=== PATIENT | female | born 1955 | race Caucasian/White ===

== ENCOUNTER 2019-03-29 13:51 | Inpatient (IN) | payer SELFPAY ==
--- NOTE | 2019-03-29 14:00 | CT ---
EXAM: CT brain without contrast HISTORY: Right-sided weakness and facial drooping COMPARISON: None TECHNIQUE: Multiple contiguous axial images were obtained and a CT of the brain without contrast. FINDINGS: There are scattered hypodensities in the subcortical and periventricular white matter consi stent with small vessel ischemic disease. No large confluent infarction is seen. One of the hypodensities in the right basal ganglia is a lacunar infarction of uncertain age. There is no eviden ce of hydrocephalus, intracranial hemorrhage, or extra-axial fluid collection. The calvarium and overlying soft tissues are unremarkable. The visualized paranasal sinuses and masto id air cells are well aerated. IMPRESSION: No evidence of confluent infarction Dr. Flor notified of findings at 1:57 PM on 03/29/2019.
[2019-03-29 14:05] LABS: #Lymphocytes 2.2 thou/uL (1.20-3.40); #Monocytes 0.4 thou/uL (0.11-0.59); #Neutrophils 4.2 thou/uL (1.40-6.50); %Basophils 0.5 % (0.0-1.0); %Eosinophils 0.4 % (0.0-10.0); %Lymphocytes 31.8 % (21.0-51.0); %Monocytes 5.1 % (0.0-10.0); %Neutrophils 62.2 % (42.0-75.0); Hemoglobin 14.1 g/dL (12.0-16.0); Mean Corpuscular HGB CONC 35.9 g/dL (32.0-36.0); Mean Corpuscular Hemoglobin 31.3 pg (27.0-31.0); Mean Corpuscular Volume 87.1 fL (78.0-98.0); Platelet Count 246 thou/uL (130-400); RBC Distribution Width 11.9 % (11.5-14.5); Red Blood Cell (RBC) Count 4.52 mill/uL (4.20-5.40); White Blood Cell (WBC) Count 6.8 thou/uL (4.8-10.8)
[2019-03-29 14:11] LABS: PTT 24.5 SEC (22.9-36.1)
--- NOTE | 2019-03-29 14:12 | CT ---
Exam: CTA neck with contrast CTA head with contrast HISTORY: Stroke with right-sided weakness COMPARISON: None TECHNIQUE: 1. Multiple contiguous axial images were obtained and a CTA of the neck with contrast. 3-D sagittal a nd coronal MIP reformats were performed. 2. Multiple contiguous axial images were obtained and a CTA of the head with contrast. 3-D sagittal a nd coronal MIP reformats were performed. FINDINGS: CTA NECK: Aortic arch: Normal origin of the carotid arteries from the arch. No significant atherosclerotic dise ase of the subclavian arteries. Right common carotid artery: No significant atherosclerotic disease or narrowing Left common carotid artery: No significant atherosclerotic disease or narrowing Right internal carotid artery: Mild calcified atherosclerotic plaque with less than 25% stenosis per NASCET criteria Right external carotid artery: No significant atherosclerotic disease or narrowing Left internal carotid artery: Mild calcified atherosclerotic plaque with less than 25% stenosis per NASCET criteria Left external carotid artery: No significant atherosclerotic disease or narrowing Right cervical vertebral artery: No significant atherosclerotic disease or narrowing Left cervical vertebral artery: No significant atherosclerotic disease or narrowing No cervical adenopathy. There is a 2.6 cm right thyroid hypodensity. The lung apices are unremarkable . Degenerative changes in the spine. CTA HEAD: Right intracranial internal carotid artery: Patent without narrowing or occlusion Right anterior cerebral artery: Patent without narrowing or occlusion Right middle cerebral artery: Patent without narrowing or occlusion Left intracranial internal carotid artery: Patent without narrowing or occlusion Left anterior cerebral artery: Patent without narrowing or occlusion Left middle cerebral artery: Patent without narrowing or occlusion No aneurysmal dilatation is seen in the anterior circulation. Right vertebral artery: Patent without narrowing or occlusion Left vertebral artery: Patent without narrowing or occlusion Basilar artery: Patent without narrowing or occlusion The posterior cerebral arteries and cerebellar arteries are patent without narrowing or occlusion. No aneurysmal dilatation is seen in the posterior circulation. IMPRESSION: 1. Mild bilateral internal carotid artery disease without significant stenosis. 2. No significant CTA abnormality of the head 3. Thyroid hypodensity should be evaluated with a nonemergent outpatient thyroid ultrasound.
[2019-03-29 14:21] LABS: ALT (SGPT) 12 U/L (8-55); AST (SGOT) 19 U/L (5-34); Albumin 3.8 g/dL (3.4-4.8); Alkaline Phosphatase 125 U/L (40-110); Anion Gap 17 mmol/L (10-20); BUN (Urea Nitrogen) 9 mg/dL (9.8-20.1); Bilirubin, Total 0.4 mg/dL (0.2-1.2); CK (CPK) 148 U/L (29-168); Calc. Creatinine Clearance 0 mL/min (70-130); Calcium 9.2 mg/dL (7.8-10.44); Carbon Dioxide 27 mmol/L (23-31); Chloride 95 mmol/L (98-107); Estimated GFR-MDRD 58; Globulin 2.4 g/dL (2.4-3.5); Glucose 463 mg/dL (80-115); Protein, Total 6.2 g/dL (6.0-8.3); Sodium 136 mmol/L (136-145)
[2019-03-29 14:33] LABS: Potassium 2.6 mmol/L (3.5-5.1)
[2019-03-29 14:36] LABS: CKMB 16.2 ng/mL (0-6.6)
--- NOTE | 2019-03-29 14:40 | RAD ---
EXAM: Single view of the chest HISTORY: Altered mental status with facial drooping and right arm weakness COMPARISON: None FINDINGS: Single view of the chest shows a normal sized cardiomediastinal silhouette. Atheroscleroti c calcification are seen in the aorta. There is no evidence of consolidation, mass, or pleural effusion. The bones are unremarkable. IMPRESSION: No evidence of acute cardiopulmonary disease
[2019-03-29] MEDS ORDERED: Ondansetron PF 4 MG/2 ML Vial IVP PRN (17:30)
[2019-03-29] MEDS ORDERED: Acetaminophen 650 MG Suppository PR PRN (17:30)
[2019-03-29] MEDS ORDERED: Communication Order-Pharmacy FS SCH (17:30)
[2019-03-29] MEDS ORDERED: Labetalol HCl 100 MG/20 ML VIAL SLOW IVP PRN (17:30)
[2019-03-29] MEDS ORDERED: Ondansetron ODT 4 MG TAB PO PRN (17:30)
[2019-03-29] MEDS ORDERED: hydrALAZINE 20 MG/ML VIAL SLOW IVP PRN (17:30)
[2019-03-29] MEDS ORDERED: niCARdipine 25 MG in Sodium Chloride 0.9% 250 ML 240 ML IVPB PRN (17:30)
[2019-03-29] MEDS ORDERED: Sodium Chloride 0.9% 1,000 ML IV SCH (17:30)
[2019-03-29 17:44] VITALS: BMI 28.5
[2019-03-29] MEDS ORDERED: Potassium Chloride 40 MEQ in Sodium Chloride 0.9% 250 ML 250 ML IVPB SCH (18:15)
[2019-03-29] MEDS: Sodium Chloride 0.9% 1,000 ML IV SCH (18:52)
[2019-03-29 21:40] LABS: Troponin I 6.129 ng/mL (< 0.028)
[2019-03-29] MEDS: Famotidine 20 MG TAB PO SCH (21:59)
[2019-03-29] MEDS: Atorvastatin Calcium 40 MG TAB PO SCH (21:59)
[2019-03-29] MEDS: Insulin Regular 300 UNITS/3 ML VIAL SC PRN (21:59)
[2019-03-30] MEDS: Acetaminophen 500 MG TAB PO PRN ×2 (00:09→21:13)
--- NOTE | 2019-03-30 01:01 | HP ---
PRIMARY CARE PROVIDER: Javier Fagan MD CHIEF COMPLAINT: Right facial droop with right arm and lower extremity paralysis. HISTORY OF PRESENT ILLNESS: This is a 63-year-old female, who presents to [facility] Emergency Department after family noted right-sided weakness, right facial droop, slurred speech with unclear time course of onset. The daughter reports the patient had complained of difficulty ambulating with slurred speech at which point, family notified EMS, which she was transferred to the emergency room with right-sided deficit. The patient apparently was last seen normal approximately at 11:30 a.m. on 03/29/2019. The patient and family report a history of TIA within the last week, however, was not evaluated by any medical personnel. The symptoms resolved in a few hours and the patient continued on her regular activities. The family reports history of prior CVA x3 in the past, most recently in September 2018. The patient apparently left the hospital against medical advice and did not resume any medications including aspirin and did not have any inpatient rehabilitation. The patient had slow recovery of right-sided deficits, ambulating with a walker and eventually able to ambulate short distances or with a wheelchair. The daughter reports intermittent falls as the patient has lived independently near her daughter in the [facility]. The patient has continued to drive short distances according to the family over the last year. In the emergency room, the patient underwent general evaluation with initial CT imaging of the brain showing no acute process. CT angiogram was also performed showing no focal stenosis at which point, the patient was deemed an appropriate candidate for tPA. The patient received the administration and was monitored in the emergency room without specific increase in strength of the right upper or right lower extremity. The patient's speech had improved somewhat according to family members and nursing personnel. The patient was also noted on initial evaluation with elevated troponin I as well as a BNP of 2800. The patient denied any specific chest pain or shortness of breath, but does state that she does not want to go to inpatient rehab. PAST MEDICAL HISTORY: 1. History of CVA, September 2018, with residual right-sided deficit. 2. Tobacco abuse, ongoing. 3. Noncompliance. 4. Question of diabetes mellitus type 2, untreated. 5. Right hemiparesis. 6. Chronic obstructive pulmonary disease. PAST SURGICAL HISTORY: 1. Status post cholecystectomy. 2. Status post hysterectomy. 3. Status post bladder suspension. 4. Status post hernia repair. CURRENT MEDICATIONS: Reviewed and negative. ALLERGIES: TO PENICILLIN. FAMILY HISTORY: Positive for hypertension and diabetes mellitus. SOCIAL HISTORY: The patient resides in [place], [place], near her daughter who accompanies her in the emergency room. Smoked greater than 30 years up to 2 packs per day. No illicit drug use. No alcohol. History of falls with right-sided deficit after previous CVA. REVIEW OF SYSTEMS: CONSTITUTIONAL: Negative for weight loss or gain, ability to conduct usual activities. SKIN: Negative for rash, itching. EYES: Negative for double vision, pain. ENT/MOUTH: Negative for nose bleeding, neck stiffness, pain, tenderness. CARDIOVASCULAR: Negative for palpitations, dyspnea on exertion, orthopnea. RESPIRATORY: Negative for shortness of breath, wheezing, cough, hemoptysis, fever or night sweats. GASTROINTESTINAL: Negative for poor appetite, abdominal pain, heartburn, nausea, vomiting, constipation, or diarrhea. GENITOURINARY: Negative for urgency, frequency, dysuria, nocturia. MUSCULOSKELETAL: Negative for pain, swelling. NEUROLOGIC/PSYCHIATRIC: Negative for anxiety, depression. ALLERGY/IMMUNOLOGIC: Negative for skin rash, bleeding tendency. Otherwise negative except as stated per HPI. PHYSICAL EXAMINATION: VITAL SIGNS: On admission. Blood pressure 184/121, pulse 105, respiratory rate 16, temperature 98 degrees Fahrenheit, O2 saturation 96% on room air. GENERAL APPEARANCE: This is a 63-year-old female, smiling with right facial droop, in no acute distress. HEENT: Pupils are equal, round, reactive to light and accommodation. Extraocular muscles are intact. No scleral icterus. No conjunctival injection. Nares patent. OP is clear. Teeth in poor repair. Right facial asymmetry noted. NECK: Supple. No cervical adenopathy. No thyromegaly. No carotid bruits. No JVD appreciated. Cervical spine with full active and passive range of motion. No meningeal signs noted. CHEST: Diminished breath sounds in the bases bilaterally. No crackles noted. CARDIOVASCULAR: S1, S2 with a 1/6 to 2/6 systolic ejection murmur at the left sternal border. ABDOMEN: Rounded, soft, nontender, and nondistended. Bowel sounds are positive in all 4 quadrants. There is no hepatosplenomegaly. No abdominal bruits. No rebound or guarding appreciated. EXTREMITIES: Warm and dry with fair turgor. No clubbing, cyanosis, or asymmetric edema appreciated. Pulses are palpable distally at the dorsalis pedis, posterior tibial, and popliteal arteries bilaterally. Capillary refill is less than 2 seconds. NEUROLOGIC: Right facial asymmetry noted. Dysarthria and dysphagia. Right flaccid hemiparesis. PERTINENT LABORATORY AND X-RAY FINDINGS: Sodium 136, potassium 2.6, chloride 95, CO2 of 27, BUN 9, creatinine 0.97, estimated GFR of 58, glucose 463, calcium 9.2, alkaline phosphatase 125, total CK of 148, troponin I 1.557. BNP 2840. CBC showed a white blood cell count of 6.8, hemoglobin 14, hematocrit 39, platelet count 246 with normal differential. PT 13.0, INR 1.0, PTT 24.5. CT of the brain without contrast dated 03/29/2019, showed no acute intracranial process. Lacunar infarcts noted of indeterminate age in the right basal ganglia. CT angiogram of the [place] dated 03/29/2019, showed no focal stenosis. Mild bilateral internal carotid artery disease without focal stenosis. Portable chest x-ray dated 03/29/2019, showed no acute cardiopulmonary process. EKG dated 03/29/2019, by my interpretation shows a sinus tachycardia with rates in the low 100s. Attenuated R-waves noted in the precordial leads. Left axis deviation noted. T-wave inversion noted in leads V2 and V3. ASSESSMENT AND PLAN: 1. Acute cerebrovascular accident with right hemiparesis. The patient will be admitted to the critical care unit status post tPA in the emergency room. We will continue general stroke protocol. Consult neurology service in the a.m. for any further recommendations. Check 2D transthoracic echocardiogram. Hold antithrombotics and aspirin therapy x24 hours per post tPA protocol. PT, OT, and speech therapy evaluation pending. 2. Non-ST elevation myocardial infarction. Suspected given elevated troponin I initially. Continue troponin I trending. Resume aspirin when clinically stable post tPA therapy. Consult cardiology service in the a.m. Initiate Lipitor 40 mg at bedtime. 2D transthoracic echocardiogram pending. 3. Hypokalemia. Potassium chloride supplementation and serial potassium monitoring. 4. Hypertensive urgency. Suspect secondarily to #1. Continue hydralazine per stroke protocol. Serial blood pressure monitoring. Titrate blood pressure regimen prior to discharge. 5. Tobacco abuse. Smoking cessation resources prior to discharge. 6. Prophylaxis. SCDs while in bed. Pepcid 20 mg p.o. b.i.d. PT, OT, and speech therapy evaluation pending. 7. Code status is full. Surrogate medical decision maker is the patient's daughter. Job ID: [id number]
[2019-03-30] MEDS: Insulin Regular 300 UNITS/3 ML VIAL SC PRN ×2 (01:30→16:35)
[2019-03-30] MEDS ORDERED: Lorazepam 2 MG/ML VIAL SLOW IVP SCH (03:00)
[2019-03-30 06:44] LABS: Hemoglobin A1c 9.9 % (4.0-6.0)
[2019-03-30 06:54] LABS: Potassium 2.4 mmol/L (3.5-5.1)
[2019-03-30 06:55] LABS: Cardiac Risk 6.7 (Less than 4.5)
[2019-03-30] MEDS: Famotidine 20 MG TAB PO SCH ×2 (08:33→21:13)
[2019-03-30] MEDS ORDERED: Potassium Chloride 40 MEQ in Sodium Chloride 0.9% 250 ML 250 ML IVPB SCH (09:00)
--- NOTE | 2019-03-30 09:09 | CON ---
DATE OF CONSULTATION: 03/30/2019 REASON FOR CONSULTATION: Elevated troponin. HISTORY OF PRESENT ILLNESS: Ms. Lucio is a 63-year-old woman with a previous history of tobacco abuse. No recent history of underlying coronary artery disease, who recently presented with right-sided facial droop and flaccid right upper and lower extremity. She was seen and evaluated in the emergency room and was given tPA. During my visit, she answers questions slowly. She does have some movement noted to the right upper extremity. Again, she is able to answer some questions, but others not able to. She denies chest pain, pressure, shortness of breath. She does state she has chronic shortness of breath from COPD. PAST MEDICAL HISTORY: CVA, noncompliance, right hemiparesis, diabetes mellitus, COPD, cholecystectomy, hysterectomy, bladder suspension, and hernia repair. ALLERGIES: PENICILLIN. SOCIAL HISTORY: Sixty pack year history, continued use. No alcohol use. REVIEW OF SYSTEMS: A 10-point review of systems is reviewed and difficult to assess given the above. PHYSICAL EXAMINATION: GENERAL: Right-sided facial droop and right upper and lower extremity weakness. VITAL SIGNS: Blood pressure 176/94, pulse 101, respirations 20. NEUROLOGIC: The patient is alert and oriented x3 with no focal neurologic deficits. HEENT: Sclerae without icterus. Mouth has moist mucous membranes with normal pallor. NECK: No JVD. Carotid upstroke brisk. No bruits bilaterally. LUNGS: Clear to auscultation with unlabored respirations. BACK: No scoliosis or kyphosis. CARDIAC: Regular rate and rhythm with normal S1 and S2. No S3 or S4 noted. No significant rubs, murmurs, thrills, or gallops noted throughout the precordium. PMI is not displaced. There is no parasternal heave. ABDOMEN: Soft, nontender, nondistended. No peritoneal signs present. No hepatosplenomegaly. No abnormal striae. EXTREMITIES: 2+ femoral and 2+ dorsalis pedis pulses. No cyanosis, clubbing, or edema. SKIN: No gross abnormalities. PERTINENT LABORATORY DATA: Hemoglobin 14.1, potassium 2.4. EKG shows normal sinus rhythm with right bundle-branch block. No previous EKG tracings for comparison. She does appear to have ST-segment elevation noted in V2, V3, and unknown whether chronic or acute. This was at the March 29, at 14:07. Peak troponin 6.1. CK-MB not drawn. IMPRESSION: 1. Elevated troponin. 2. Abnormal EKG. 3. Recent cerebrovascular accident, status post tPA. 4. Ongoing tobacco abuse. 5. Chronic obstructive pulmonary disease. RECOMMENDATIONS: Ms. Lucio currently has no symptoms. She has greater than 14 hours from her initial EKG. Her troponin appears to be leveling off going from 1 to 5 to 6. We would recommend repeat troponin in addition to CK-MB. At this point, given that she has no symptoms and has received tPA, we will continue current course. She will likely need aspirin and Plavix. I would also recommend beta-andrew therapy, low-dose. She will need to have an increased blood pressure and not drop her blood pressures significantly. She is currently on IV nicardipine. We will review her echo. I did spend 35 minutes of critical care time with Ms. Lucio. Job ID: [id number]
--- NOTE | 2019-03-30 09:39 | CT ---
PRELIMINARY REPORT/[facility]/EMERGENCY AFTER HOURS PROCEDURE: PROCEDURE INFORMATION: Exam: CT Head Without Contrast Exam date and time: 03/30/2019 4:58 AM Clinical history: 63 years old, female; Condition or disease and screening exam; Patient HX: F/u CVA; S/P t-pa TECHNIQUE: Imaging protocol: Computed tomography of the head without contrast. COMPARISON: CT Brain WO Con 03/29/2019 1:52 PM FINDINGS: Brain: There are unchanged multiple small hypodensities in the basal ganglia and left arriola radiata, consistent with remote lacunar infarctions. No hemorrhage. Unremarkable Patchy whitte matter hypodensities are nonspecific but may be seen in small vessel chronic ischemic changes. Ventricles: No ventriculomegaly. Bones/joints: No acute fracture. Sinuses: Visualized sinuses are unremarkable. No fluid levels. Mastoid air cells: Visualized mastoid air cells are well aerated. Soft tissues: Unremarkable. IMPRESSION: No significant change. Thank you for allowing us to participate in the care of your patient. Dictated and Authenticated by: Marsha Walker MD 03/30/2019 5:43 AM Central Time ([place] & [place]) FINAL REPORT CT BRAIN WITHOUT CONTRAST: I agree with the preliminary report given by Ofelia. POS: [facility]
[2019-03-30 09:46] LABS: CKMB 15.9 ng/mL (0-6.6); Critical Call CKMB RESULT DECREASING; Critical Call Chem Troponin I RESULT DECREASING; Troponin I 3.567 ng/mL (< 0.028)
--- NOTE | 2019-03-30 11:40 | MRI ---
MRI Brain WO Con: 03/30/2019 5:30 PM CLINICAL HISTORY: Stroke. COMPARISON: Reference made to 03/30/[address] FINDINGS: Extra axial spaces: Mild prominence due to parenchymal atrophy. Acute infarction: Foci of restricted diffusion are present bilaterally, on the left within the rariola radiata extending into the left lentiform nucleus, and on the right involving the periventricular white matter of the right temporoparietal region. Ventricular system: Mild compensatory dilatation. Basal cisterns: Normal. Cerebral parenchyma: Microvascular ischemic changes. Midline shift: None. Cerebellum: Normal. Brainstem: Normal. Paranasal sinuses:Clear IMPRESSION:Multifocal small recent infarctions of bilateral cerebral hemispheres. This may relate to embolic phenomenon.
[2019-03-30] MEDS: Lorazepam 2 MG/ML VIAL SLOW IVP PRN (11:56)
--- NOTE | 2019-03-30 13:06 | CON ---
DATE OF CONSULTATION: 03/30/2019 TELEMEDICINE CONSULT CHIEF COMPLAINT: Right-sided weakness. HISTORY OF PRESENT ILLNESS: History was obtained both from the patient and her daughter. The patient has been having some symptoms since a week. She has been having difficulty climbing stairs, but yesterday she was dragging her foot while walking. An hour before diagnosis, she had right facial droop and she looked hot even though she was not hot and she was short of breath as well and she had right leg numbness and tingling and once she developed right-sided weakness including facial droop, she was brought here and she received IV tPA since she was within the time frame for tPA. PREVIOUS MEDICAL HISTORY: The patient has had two other strokes, one in 2018 and another in 2015 which affected her left side and has recovered fully. The stroke from 2018 did not result in improvement. The patient had residual right-sided weakness. ALLERGIES: SHE IS ALLERGIC TO PENICILLIN, WHICH CAUSES A RASH. PAST SURGICAL HISTORY: She had gallbladder surgery in , hysterectomy in , bladder repair and hernia repair in 1995. FAMILY HISTORY: The patient's maternal grandmother had massive stroke. Maternal grandfather had a heart attack. Paternal grandmother from old age. Paternal grandfather had cancer. The patient's father from coronary artery disease, liver cirrhosis and congestive heart failure. He was an alcoholic and the patient's mother from coronary artery disease and diabetes. Her sister is 51 and another sister is 63. Daughter and son are born in the 1980s and they are all healthy. REVIEW OF SYSTEMS: PULMONARY: Positive for shortness of breath. CARDIAC: Negative for chest pain and palpitations. GI: Negative for any nausea, vomiting, or diarrhea. NEUROLOGICAL: Positive for right face, arm, and leg weakness. HEMATOLOGIC: Negative for any bleeding diatheses. OPHTHALMOLOGIC: Negative for vision problems. LABORATORY DATA: White count 6.8, hemoglobin 14.1, hematocrit 39.4, platelet 246. Chemistry; sodium was 136, potassium 2.6, chloride 95, bicarb 27, BUN 9, creatinine 0.97, glucose 463, elevated cardiac enzymes. Alkaline phosphatase elevated at 125. BNP 2839 and lipid profile is still within normal limits except for cholesterol of 200. CT angiogram shows mild bilateral internal carotid artery disease and no stenosis and no CT abnormalities of the head. MRI of the brain was completed and showed multifocal small lucent infarcts of the bilateral cerebral hemorrhage and is most likely embolic in nature. Echocardiogram is pending at this time. PHYSICAL EXAMINATION: VITAL SIGNS: Blood pressure 166/111 and her pulse rate is 96 and her temperature is 98 degrees Fahrenheit. CHEST: She had coarse respiratory wheezes in the lung. CARDIOVASCULAR: S1 and S2 heard. No murmurs. ABDOMEN: Soft and nontender. No organomegaly noted. NEUROLOGICAL: Higher intellectual functions normal orientation to time, place, and person. Somewhat withdrawn, did not want to cooperate much due to tiredness. Cranial nerves, normal extraocular movements and normal sensation of face bilaterally. Motor exam of the face, she had facial droop on the right side. Normal hearing bilaterally. Tongue midline. No atrophy noted. Normal elevation of palate. Motor examination, bulk normal, tone normal, strength 5/5 in upper and lower extremities in iliopsoas, hamstrings, quadriceps, ankle dorsiflexion, plantar flexion, deltoid, biceps, triceps, wrist extension and flexion, finger extension and flexion on the left side, 3/5 on the right side. Cerebellar normal [id number], [id number], sensory was normal bilaterally. IMPRESSION: The patient is a 63-year-old lady. She came in with a cerebrovascular accident, status post tPA. It is difficult to assess the full recovery because she is somewhat uncooperative likely secondary to tiredness. At this time, her examination shows right-sided face, arm, leg weakness and keeping with the acute stroke likely in the left cerebral hemisphere, but she also has embolic events bilaterally and we need to explore this further since the CT angiogram is negative, this is likely cardioembolic. RECOMMENDATIONS: Please complete echocardiogram and consult Cardiology if needed. Due to her recurrent stroke, she may need a KARLOS in order to explore this fully in case her transthoracic echo is normal. She is currently on aspirin and statin. We may have to add Plavix or other agents based on her cardiac status. I will follow up with you tomorrow. Job ID: [id number]
[2019-03-30] MEDS: Sodium Chloride 0.9% 1,000 ML IV SCH (14:04)
--- NOTE | 2019-03-30 14:38 | PDOC.HOSPP ---
- Subjective Encounter Date: 03/30/19 Encounter Time: 11:45 Subjective: pt seen and examined, her daughter bedside, - Objective Vital Signs & Weight: Vital Signs (12 hours) Temp Pulse BP Pulse Ox 03/30/19 09:31 105 H 176/121 H 03/30/19 07:25 100 03/30/19 07:00 98 F 03/30/19 04:00 97.9 F Weight Weight 160 lb 14.999 oz Most Recent Monitor Data Heart Rate from ECG 109 NIBP 161/112 NIBP BP-Mean 128 Respiration from ECG 25 SpO2 91 I&O: 03/29/19 03/30/19 03/31/19 06:59 06:59 06:59 Intake Total 526 0 Output Total 650 5 Balance -124 -5 Result Diagrams: 03/29/19 13:53 03/30/19 05:58 Additional Labs: Accuchecks 03/30/19 03/30/19 03/30/19 08:34 05:20 01:32 POC Glucose 188 H 161 H 227 H 03/29/19 21:56 POC Glucose 261 H Radiology Reviewed by me: Yes EKG Reviewed by me: Yes Hospitalist ROS - Review of Systems Constitutional: denies: fever, chills, sweats, weakness, malaise, other Eyes: denies: pain, vision change, conjunctivae inflammation, eyelid inflammation, redness, other ENT: denies: ear pain, ear discharge, nose pain, nose discharge, nose congestion , mouth pain, mouth swelling, throat pain, throat swelling, other Respiratory: denies: cough, dry, shortness of breath, hemoptysis, SOB with excertion, pleuritic pain, sputum, wheezing, other Cardiovascular: denies: chest pain, palpitations, orthopnea, paroxysmal noc. dyspnea, edema, light headedness, other Gastrointestinal: denies: nausea, vomiting, abdominal pain, diarrhea, constipation, melena, hematochezia, other Genitourinary: denies: dysuria, frequency, incontinence, hematuria, retention, other Musculoskeletal: denies: neck pain, shoulder pain, arm pain, back pain, hand pain, leg pain, foot pain, other Neurological: reports: weakness, incoordination. denies: numbness, change in speech, confusion, seizures, other - Medication Medications: Active Medications Generic Name Dose Route Start Last Admin Trade Name Freq PRN Reason Stop Dose Admin Acetaminophen 1,000 mg 03/29/19 17:30 03/30/19 00:09 Tylenol PO 1,000 mg Q6H PRN Administration Mild Pain (1-3) Atorvastatin Calcium 40 mg 03/29/19 21:00 03/29/19 21:59 Lipitor PO 40 mg HS KASIA Administration Famotidine 20 mg 03/29/19 21:00 03/30/19 08:33 Pepcid PO 20 mg BID KASIA Administration Hydralazine HCl 10 mg 03/29/19 17:30 03/30/19 09:31 Apresoline SLOW IVP 10 mg Q4H PRN Administration SBP > 180 or DBP > 105 Sodium Chloride 1,000 mls @ 50 mls/hr 03/29/19 17:36 03/30/19 14:04 Normal Saline 0.9% IV 1,000 mls .Q20H KASIA Administration Insulin Human Regular 0 units 03/29/19 17:30 03/30/19 01:30 Humulin R SC 4 unit .MODERATE SLIDING SC PRN Administration Moderate Correctional Scale Labetalol HCl 10 mg 03/29/19 17:30 03/30/19 02:05 Normodyne SLOW IVP 10 mg Q10MIN PRN Administration SBP > 180 or DBP > 105 Lorazepam 1 mg 03/30/19 11:50 03/30/19 11:56 Ativan SLOW IVP 1 mg Q4H PRN Administration Anxiety Miscellaneous Information 1 each 03/29/19 17:30 03/29/19 22:09 Communication Order-Pharmacy FS 03/30/19 17:31 Not Given NOW KASIA Sodium Chloride 10 ml 03/30/19 09:00 03/30/19 08:34 Flush - Normal Saline IVF 10 ml Q12HR KASIA Administration - Exam General Appearance: NAD, awake alert Eye: PERRL, anicteric sclera ENT: normocephalic atraumatic, no oropharyngeal lesions Neck: supple, symmetric, no JVD, no thyromegaly Heart: RRR, no murmur, no gallops, no rubs Respiratory: CTAB, no wheezes, no rales, no ronchi Gastrointestinal: soft, non-tender, non-distended, normal bowel sounds Extremities: no cyanosis, no clubbing, no edema Skin: normal turgor, no lesions Neurological - other findings: pt did not allow to do neuro exam Musculoskeletal: normal tone, normal strength Psychiatric: normal affect, normal behavior, A&O x 3 Hosp A/P (1) Hypertensive urgency Code(s): I16.0 - HYPERTENSIVE URGENCY Status: Acute (2) CVA (cerebral vascular accident) Code(s): I63.9 - CEREBRAL INFARCTION, UNSPECIFIED Status: Acute Qualifiers: CVA mechanism: embolism Laterality of affected vessel: bilateral (3) NSTEMI (non-ST elevated myocardial infarction) Code(s): I21.4 - NON-ST ELEVATION (NSTEMI) MYOCARDIAL INFARCTION Status: Chronic (4) Hypokalemia Code(s): E87.6 - HYPOKALEMIA Status: Acute (5) Tobacco abuse Code(s): Z72.0 - TOBACCO USE Status: Chronic (6) COPD (chronic obstructive pulmonary disease) Status: Chronic (7) Noncompliance with medication regimen Code(s): Z91.14 - PATIENT'S OTHER NONCOMPLIANCE WITH MEDICATION REGIMEN Status : Chronic (8) Diabetes type 2, uncontrolled Code(s): E11.65 - TYPE 2 DIABETES MELLITUS WITH HYPERGLYCEMIA Status: Acute - Plan old records reviewed/req, plan discussed w/ family, PT/OT, licensed master social worker, speech therapy 03/30/19 refused cardiac cath counselled to get MRI done does not want any dietary restriction and agreed with aspiration risk will transfer to stroke floor later today counselled to quit smoking DNR made, see advance care planning note follow echo neurology and cardiology on case medication reviewed as above symptomatic treatment
--- NOTE | 2019-03-30 14:57 | PDOC.FMACP ---
Advance Care Planning - Problem (1) Hypertensive urgency Status: Acute Code(s): I16.0 - HYPERTENSIVE URGENCY (2) CVA (cerebral vascular accident) Status: Acute Code(s): I63.9 - CEREBRAL INFARCTION, UNSPECIFIED Qualifiers: CVA mechanism: embolism Laterality of affected vessel: bilateral (3) NSTEMI (non-ST elevated myocardial infarction) Status: Chronic Code(s): I21.4 - NON-ST ELEVATION (NSTEMI) MYOCARDIAL INFARCTION (4) Hypokalemia Status: Acute Code(s): E87.6 - HYPOKALEMIA (5) Tobacco abuse Status: Chronic Code(s): Z72.0 - TOBACCO USE (6) COPD (chronic obstructive pulmonary disease) Status: Chronic (7) Noncompliance with medication regimen Status: Chronic Code(s): Z91.14 - PATIENT'S OTHER NONCOMPLIANCE WITH MEDICATION REGIMEN (8) Diabetes type 2, uncontrolled Status: Acute Code(s): E11.65 - TYPE 2 DIABETES MELLITUS WITH HYPERGLYCEMIA - Note Participants: patient, family Summary: Advanced Care Planning was discussed. The diagnosis, prognosis and goals of care were discussed. Appropriate forms and documentation to accomplish the goals of care were discussed. All questions were answered. The Palliative Care Team will be engaged to assist with completion of any outstanding forms that are needed. 63 year old female admitted with acute CVA, she was given TPA, today I had discussion with her about code status I had long discussion with her about meaning of DNR and full code status, Based on talk with her, pt was capable of making her own decision. Her daughter Kaela was present during discussion pt wanted to keep herself DNR, she does not want CPR or intubation even does not want to try in case of cardiopulmonary arrest. Initially pt was not interested in getting medical care, but after discussion agreed with conservative medical care Time Spent (mins): 20
[2019-03-30] MEDS: Atorvastatin Calcium 40 MG TAB PO SCH (21:13)
[2019-03-31] MEDS: Lorazepam 2 MG/ML VIAL SLOW IVP PRN (00:50)
[2019-03-31] MEDS: Sodium Chloride 0.9% 1,000 ML IV SCH (01:31)
[2019-03-31 07:45] VITALS: BP 140/75; TEMP 98.8
[2019-03-31] MEDS ORDERED: Aspirin 325 MG TAB PO SCH (09:00)
[2019-03-31] MEDS ORDERED: Aspirin 300 MG Suppository PR SCH (09:00)
--- NOTE | 2019-03-31 09:32 | PRG ---
DATE OF SERVICE: 03/31/2019 SUBJECTIVE: Ms. Lucio is more alert today. She continues to have right-sided weakness and right facial droop. She has had four strokes previously. She states she has worsening residual weakness and facial drooping from her last stroke. No chest pain or pressure noted. Her most recent echo did suggest LVEF of 25%. OBJECTIVE: VITAL SIGNS: Blood pressure 140/75, pulse 101, and temperature 98.8. LUNGS: Clear to auscultation. HEART: Regular rate and rhythm. ABDOMEN: Soft, nontender, nondistended. EXTREMITIES: No edema. NEURO: Right-sided facial droop and right-sided weakness. PERTINENT LABORATORY DATA: Hemoglobin 14.1 and hematocrit 39.4. IMPRESSION: 1. Recent stroke. 2. Continued tobacco abuse. 3. Noncompliance. 4. New onset cardiomyopathy. RECOMMENDATIONS: I discussed several issues with Ms. Lucio. Her LVEF has appeared to be markedly diminished showing a previous myocardial infarction with akinesis to the mid to distal anterior wall apex and distal inferior wall. If she has had four strokes in the past, one of the etiologies would be a thrombus to the apex. This was not visualized, but certainly part of the differential. She would likely benefit from anticoagulation therapy. I discussed the risks and benefits of anticoagulation therapy. She states she is not interested and understands the risk of repeat stroke. I also discussed the LifeVest with the patient. I did state that there is risk of sudden cardiac given her LVEF. She again is not interested and wound like to go home. She states she has called her daughter, who is here to pick her up today. We will therefore continue aspirin and atorvastatin. We will add low-dose beta-andrew therapy, but I am unsure whether she will truly take it. We will add metoprolol succinate to her regime. Otherwise, I have no further recommendations. Job ID: [id number]
--- NOTE | 2019-03-31 10:06 | PDOC.HOSPP ---
- Subjective Encounter Date: 03/31/19 Encounter Time: 07:30 Subjective: pt refusing her care, she wants to go home but she is not stable for discharge, she is going outside to smoke, she refused blood draw - Objective Vital Signs & Weight: Vital Signs (12 hours) Temp Pulse Resp BP Pulse Ox 03/31/19 07:44 98.8 F 101 H 16 140/75 98 03/31/19 05:59 99.4 F 102 H 18 136/75 98 03/31/19 03:35 98.3 F 113 H 20 159/92 H 92 L Weight Weight 160 lb 14.999 oz Most Recent Monitor Data Heart Rate from ECG 88 NIBP 131/83 NIBP BP-Mean 99 Respiration from ECG 26 SpO2 93 I&O: 03/30/19 03/31/19 04/01/19 06:59 06:59 06:59 Intake Total 526 150 Output Total 650 409 Balance -124 -259 Result Diagrams: 03/29/19 13:53 03/30/19 05:58 Additional Labs: Accuchecks 03/30/19 16:36 POC Glucose 257 H Radiology Reviewed by me: Yes EKG Reviewed by me: Yes Hospitalist ROS - Review of Systems ENT: denies: ear pain, ear discharge, nose pain, nose discharge, nose congestion , mouth pain, mouth swelling, throat pain, throat swelling, other Respiratory: denies: cough, dry, shortness of breath, hemoptysis, SOB with excertion, pleuritic pain, sputum, wheezing, other Cardiovascular: denies: chest pain, palpitations, orthopnea, paroxysmal noc. dyspnea, edema, light headedness, other Gastrointestinal: denies: nausea, vomiting, abdominal pain, diarrhea, constipation, melena, hematochezia, other Genitourinary: denies: dysuria, frequency, incontinence, hematuria, retention, other Musculoskeletal: denies: neck pain, shoulder pain, arm pain, back pain, hand pain, leg pain, foot pain, other Neurological: reports: weakness, change in speech - Medication Medications: Active Medications Generic Name Dose Route Start Last Admin Trade Name Freq PRN Reason Stop Dose Admin Acetaminophen 1,000 mg 03/29/19 17:30 03/30/19 21:13 Tylenol PO 1,000 mg Q6H PRN Administration Mild Pain (1-3) Atorvastatin Calcium 40 mg 03/29/19 21:00 03/30/19 21:13 Lipitor PO 40 mg HS KASIA Administration Famotidine 20 mg 03/29/19 21:00 03/30/19 21:13 Pepcid PO 20 mg BID KASIA Administration Hydralazine HCl 10 mg 03/29/19 17:30 03/30/19 09:31 Apresoline SLOW IVP 10 mg Q4H PRN Administration SBP > 180 or DBP > 105 Insulin Human Regular 0 units 03/29/19 17:30 03/30/19 16:35 Humulin R SC 6 unit .MODERATE SLIDING SC PRN Administration Moderate Correctional Scale Labetalol HCl 10 mg 03/29/19 17:30 03/30/19 02:05 Normodyne SLOW IVP 10 mg Q10MIN PRN Administration SBP > 180 or DBP > 105 Lorazepam 1 mg 03/30/19 11:50 03/31/19 00:50 Ativan SLOW IVP 1 mg Q4H PRN Administration Anxiety Sodium Chloride 10 ml 03/30/19 09:00 03/30/19 21:14 Flush - Normal Saline IVF 10 ml Q12HR KASIA Administration - Exam General Appearance: NAD, awake alert Eye: PERRL, anicteric sclera ENT: normocephalic atraumatic, no oropharyngeal lesions Neck: supple, symmetric, no JVD, no thyromegaly, no lymphadenopathy Heart: RRR, no murmur, no gallops, no rubs Respiratory: CTAB, no wheezes, no rales, no ronchi Gastrointestinal: soft, non-tender, non-distended, normal bowel sounds Extremities: no cyanosis, no clubbing, no edema Skin: normal turgor, no lesions, no rashes Neurological: facial droop Neurological - other findings: right side weakness Musculoskeletal: normal tone, normal strength Psychiatric: normal affect, normal behavior, A&O x 3 Hosp A/P (1) Hypertensive urgency Code(s): I16.0 - HYPERTENSIVE URGENCY Status: Acute (2) CVA (cerebral vascular accident) Code(s): I63.9 - CEREBRAL INFARCTION, UNSPECIFIED Status: Acute Qualifiers: CVA mechanism: embolism Laterality of affected vessel: bilateral (3) NSTEMI (non-ST elevated myocardial infarction) Code(s): I21.4 - NON-ST ELEVATION (NSTEMI) MYOCARDIAL INFARCTION Status: Chronic (4) Hypokalemia Code(s): E87.6 - HYPOKALEMIA Status: Acute (5) Tobacco abuse Code(s): Z72.0 - TOBACCO USE Status: Chronic (6) COPD (chronic obstructive pulmonary disease) Status: Chronic (7) Noncompliance with medication regimen Code(s): Z91.14 - PATIENT'S OTHER NONCOMPLIANCE WITH MEDICATION REGIMEN Status : Chronic (8) Diabetes type 2, uncontrolled Code(s): E11.65 - TYPE 2 DIABETES MELLITUS WITH HYPERGLYCEMIA Status: Acute (9) Cardiomyopathy Code(s): I42.9 - CARDIOMYOPATHY, UNSPECIFIED Status: Acute Qualifiers: Cardiomyopathy type: unspecified Qualified Code(s): I42.9 - Cardiomyopathy , unspecified - Plan old records reviewed/req, plan discussed w/ family, PT/OT, social security assessor, speech therapy, DVT proph w/lovenox 03/30/19 refused cardiac cath counselled to get MRI done does not want any dietary restriction and agreed with aspiration risk will transfer to stroke floor later today counselled to quit smoking DNR made, see advance care planning note follow echo neurology and cardiology on case medication reviewed as above symptomatic treatment 03/31/19 medically not stable for discharge she wants to leave AMA risk of discussed and she does not care she refusing medical care discussed with family counselled to stay and counselled to quit smoking but she does not want to follow that request
[2019-03-31] MEDS: Famotidine 20 MG TAB PO SCH (10:41)
--- NOTE | 2019-03-31 11:35 | DIS ---
DATE OF ADMISSION: 03/29/2019 DATE OF DISCHARGE: 03/31/2019 PRIMARY CARE PHYSICIAN: Javier Fagan MD DISCHARGE DISPOSITION: Against medical advice. PRIMARY DISCHARGE DIAGNOSES: 1. Acute CVA, multifocal, suspected for embolic phenomena. 2. Yih-XJ-hgwxrwbuj myocardial infarction type 2. 3. New-onset cardiomyopathy with ejection fraction 20% to 25%. 4. Hypertensive urgency. 5. Uncontrolled diabetes, type 2. 6. Hypokalemia. SECONDARY DISCHARGE DIAGNOSES: Ongoing tobacco abuse disorder, chronic obstructive pulmonary disease, noncompliance with treatment, hypertension, and diabetes type 2. PRIMARY PROCEDURE AND OPERATIONS: None. RADIOLOGIST INVESTIGATION: CT of brain initially did not show any acute process. CT [place] was unremarkable. Chest x-ray was normal. Repeat CT brain was not complicated. MRI of brain showed multifocal infarct. Echocardiography showed EF 20% to 25%. SIGNIFICANT LABORATORY DATA: WBC 6.8, hemoglobin 14.1, and platelets 246. INR 1.0. Potassium 2.4. Hemoglobin A1c 9.9. Troponin 3.56. LDL 143. DISCHARGE MEDICATIONS: The patient left against medical advice. HOSPITAL COURSE: A 63-year-old female with above-mentioned medical problem, who was admitted by Dr. Pires, please see his H and P for further details. The patient was admitted for right-sided facial droop and right-sided upper and lower extremity weakness. The patient was having more weakness in the right upper extremity. The patient also has previous history of stroke. The patient has significant noncompliance with treatment and she has ongoing tobacco abuse disorder. In the emergency room, the patient was given tPA because she was meeting criteria. After tPA, the patient was admitted in ICU. The patient stayed in ICU for 24 hours. We did MRI of brain which confirmed multifocal infarct. We were suspecting embolic phenomena. She has new diagnosis of systolic heart failure. Echocardiography confirmed a low EF and the patient also found with [id number] AK. During this admission, Cardiology was consulted, Neurology was consulted, Cardiology was recommending cardiac catheterization, but the patient refused. Cardiology was recommending LifeVest, but the patient refused. During this admission, we replaced potassium, but repeat blood testing patient refused. We also provided smoking cessation counseling. During this admission, we also did advance directive and the patient wanted to be a DNR. The patient does not want any kind of medical treatment. She was able to make her own decision. In presence of the patient's daughter, I have explained her to stay in hospital, but the patient does not want to stay. We also told her that she is at high risk for and even after that, she did not want to stay in the hospital. The patient left against medical advice. TIME SPENT: Total time spent on discharge day, 31 minutes Job ID: [id number]
--- NOTE | 2019-04-01 15:21 | CT ---
Exam: CTA neck with contrast CTA head with contrast HISTORY: Stroke COMPARISON: None TECHNIQUE: 1. Multiple contiguous axial images were obtained and a CTA of the neck with contrast. 3-D sagittal a nd coronal MIP reformats were performed. 2. Multiple contiguous axial images were obtained and a CTA of the head with contrast. 3-D sagittal a nd coronal MIP reformats were performed. 3. A CT perfusion was attempted. This was nondiagnostic as the patient's IV infiltrated during the ex amination. FINDINGS: CTA NECK: Aortic arch: Normal origin of the carotid arteries from the arch. No significant atherosclerotic dise ase of the subclavian arteries. Right common carotid artery: No significant atherosclerotic disease or narrowing. There is a tiny bit of atherosclerotic disease surrounding the carotid bifurcation. Left common carotid artery: No significant atherosclerotic disease or narrowing. There is a tiny bit of atherosclerotic disease surrounding the carotid bifurcation. Right internal carotid artery: No significant atherosclerotic disease or narrowing per NASCET criteri a Right external carotid artery: No significant atherosclerotic disease or narrowing Left internal carotid artery: No significant atherosclerotic disease or narrowing per NASCET criteri a Left external carotid artery: No significant atherosclerotic disease or narrowing Right cervical vertebral artery: No significant atherosclerotic disease or narrowing Left cervical vertebral artery: No significant atherosclerotic disease or narrowing No cervical adenopathy. The lung apices are unremarkable. The osseous structures are unremarkable. CTA HEAD: Right intracranial internal carotid artery: Patent without narrowing or occlusion Right anterior cerebral artery: Patent without narrowing or occlusion Right middle cerebral artery: Patent without narrowing or occlusion Left intracranial internal carotid artery: Patent without narrowing or occlusion Left anterior cerebral artery: Patent without narrowing or occlusion Left middle cerebral artery: Patent without narrowing or occlusion No aneurysmal dilatation is seen in the anterior circulation. Right vertebral artery: Patent without narrowing or occlusion Left vertebral artery: Patent without narrowing or occlusion Basilar artery: Patent without narrowing or occlusion There is occlusion of the proximal right posterior cerebral artery at the P1/P2 segment. The left pos terior cerebral artery is patent. The cerebellar arteries are patent bilaterally. No aneurysmal dilatation is seen in the posterior circulation. IMPRESSION: 1. No significant CTA abnormality of the neck 2. Right ELEVATOR INSTALLER infarction. Transcribed Date/Time: 04/01/2019 3:21 PM
== END 2019-03-31 10:25 | disposition left against medical advice (07) | DRG 61 ==
LOC: ERS 13:51 → CCU 17:40 → 2SE 03-31 00:11
PROVIDERS: ADMIT Family Medicine; ATTEND Family Medicine
DX: I63.40 Cerebral infarction due to embolism of unspecified cerebral artery (principal); I21.A1 Myocardial infarction type 2; I42.8 Other cardiomyopathies; G81.91 Hemiplegia, unspecified affecting right dominant side; I50.30 Unspecified diastolic (congestive) heart failure; Z66 Do not resuscitate; I16.0 Hypertensive urgency; E87.6 Hypokalemia; F17.210 Nicotine dependence, cigarettes, uncomplicated; I11.0 Hypertensive heart disease with heart failure; J43.9 Emphysema, unspecified; Z91.14 Patient's other noncompliance with medication regimen; Z90.710 Acquired absence of both cervix and uterus; Z90.49 Acquired absence of other specified parts of digestive tract; Z88.0 Allergy status to penicillin; Z88.8 Allergy status to other drugs, medicaments and biological substances; R29.716 NIHSS score 16; R40.2142 Coma scale, eyes open, spontaneous, at arrival to emergency department; R40.2252 Coma scale, best verbal response, oriented, at arrival to emergency department; R40.2362 Coma scale, best motor response, obeys commands, at arrival to emergency department; E11.65 Type 2 diabetes mellitus with hyperglycemia
CPT/HCPCS: 36415; 36416; 70450; 70496; 70498; 70551; 71045; 80053; 80061; 82550; 82553; 83036; 83690; 83735; 83880; 84132; 84484; 85025; 85610; 85730; 93005; 93306; 94760; 96361; 96374; 96376; 99292; J0360; J1815; J2060; J2997; J3480; J7050

== ENCOUNTER 2019-04-01 03:37 | Inpatient (IN) | payer SELFPAY ==
[2019-04-01] MEDS ORDERED: Succinylcholine Chloride 20 MG/ML 10 ml SYRINGE FS ONE (03:47)
[2019-04-01 03:56] LABS: #Basophils 0.1 thou/uL (0.0-0.2); #Lymphocytes 2.4 thou/uL (1.20-3.40); #Monocytes 0.9 thou/uL (0.11-0.59); #Neutrophils 9.7 thou/uL (1.40-6.50); %Basophils 0.4 % (0.0-1.0); %Eosinophils 0.3 % (0.0-10.0); %Lymphocytes 18.3 % (21.0-51.0); %Monocytes 6.5 % (0.0-10.0); %Neutrophils 74.4 % (42.0-75.0); Hemoglobin 12.8 g/dL (12.0-16.0); Mean Corpuscular HGB CONC 32.6 g/dL (32.0-36.0); Mean Corpuscular Hemoglobin 29.5 pg (27.0-31.0); Mean Corpuscular Volume 90.5 fL (78.0-98.0); Mean Platelet Volume 7.7 fL (7.4-10.4); Platelet Count 261 thou/uL (130-400); RBC Distribution Width 12.4 % (11.5-14.5); Red Blood Cell (RBC) Count 4.34 mill/uL (4.20-5.40)
[2019-04-01 04:22] LABS: ALT (SGPT) 58 U/L (8-55); AST (SGOT) 132 U/L (5-34); Albumin 3.5 g/dL (3.4-4.8); Alkaline Phosphatase 163 U/L (40-110); Anion Gap 21 mmol/L (10-20); BUN (Urea Nitrogen) 15 mg/dL (9.8-20.1); Bilirubin, Total 1.7 mg/dL (0.2-1.2); Calc. Creatinine Clearance 0 mL/min (70-130); Carbon Dioxide 19 mmol/L (23-31); Chloride 99 mmol/L (98-107); Estimated GFR-MDRD 57; Globulin 2.5 g/dL (2.4-3.5); Glucose 423 mg/dL (80-115); Sodium 136 mmol/L (136-145)
[2019-04-01] MEDS ORDERED: Morphine 2 MG/ML SYRINGE ONE (04:28)
[2019-04-01 04:40] LABS: Potassium 2.9 mmol/L (3.5-5.1)
[2019-04-01 05:09] LABS: CKMB 30.5 ng/mL (0-6.6)
[2019-04-01 05:49] VITALS: BMI 27.8
[2019-04-01] MEDS ORDERED: Morphine 2 MG/ML SYRINGE SLOW IVP SCH (06:00)
--- NOTE | 2019-04-01 07:55 | HP ---
PRIMARY CARE PHYSICIAN: Javier Fagan MD THE REASON FOR ADMISSION: Fall and altered mental status. HISTORY OF PRESENT ILLNESS: Ms. Lucio is a pleasant 63-year-old female, who has a history of her recent stroke. She was also recently diagnosed with systolic heart failure and she also presumably has diabetes mellitus as well. She was seen just a few days ago in the hospital after she suffered a stroke in which she received tPA. She had some residual right-sided hemiparesis. The usual stroke workup was obtained and the patient had an MRI, which demonstrated multiple recent infarcts in both hemispheres suggesting an embolic-like phenomenon. She also had an echocardiogram done, which demonstrated an ejection fraction of 20% to 25%. She was evaluated by Cardiology and it was recommended that she be placed on anticoagulation as well as have a cardiac catheterization to determine the etiology of her low ejection fraction. However, she refused this. She also refused to have a LifeVest placed as well and the patiently eventually left against medical advice. She called her daughter to come pick her up and went home. While she was at home, apparently she was having difficulty ambulating and she has fallen a few times and her daughter admits that she did not want any type of treatment and did not want to come back to the hospital. However, she kept falling and then around 2:00 a.m. this morning, she was asking for the daughters to do something for her to move some things around in the house and then suddenly she stopped speaking and has been altered and nonresponsive ever since then. They have brought her back to the hospital. They do want to go along with the patient's wishes and not have any type of active care, but her daughter is willing to take her home under hospice, but she will need some help in equipment before she is able to care for her at home. REVIEW OF SYSTEMS: Unobtainable due to the patient is obtunded. PAST MEDICAL HISTORY: Significant for previous cerebrovascular accident with right-sided weakness, tobacco use, diabetes mellitus, COPD, and congestive heart failure as well as medical noncompliance. PAST SURGICAL HISTORY: She has had a cholecystectomy, hysterectomy, bladder suspension, and hernia repair. ALLERGIES: TO PENICILLIN. SOCIAL HISTORY: She smokes about 2 packs a day for the last 30 years. No drug use. No alcohol use. Code status is DNAR according to the patient's daughter. FAMILY HISTORY: Significant for hypertension and diabetes. CURRENT MEDICATIONS: None. PHYSICAL: GENERAL: She is obtunded. She is moving her extremities, but she does not track or follow any type of commands. VITAL SIGNS: Blood pressure is 119/71, heart rate 125, respiratory rate of 25, and temperature is 97.9. HEENT: Pupils are reactive. Throat; dry mucous membranes. NECK: No jugular venous distention. LUNGS: She has bilateral rhonchi as well as some mild expiratory wheezing. CARDIOVASCULAR: Heart rate is tachycardic and it is regular. No murmurs, clicks, or rubs. ABDOMEN: Soft, and positive for bowel sounds. No rebound. EXTREMITIES: There is no edema and again she is moving all of her extremities. However, it is hard to assess because she is unable to follow commands. LABORATORY RESULTS: Her white blood cell count is 13, hemoglobin 12.8, hematocrit is 39.3, and platelet count is 261. Sodium 136, potassium 2.9, chloride is 99, CO2 is 19, BUN is 15, creatinine 0.99, glucose is 423, total bili is 1.7, alkaline phosphatase is 132, and ALT is 58. Troponin was 68.7. ASSESSMENT AND PLAN: This is a 63-year-old female, who is brought back by family after she recently left [place] after suffering a massive stroke as well as a non-ST elevation myocardial infarction and found to have acute systolic heart failure. She will be admitted so that the family can make arrangements for her to pursue hospice care. In the meantime, we will place her on IV fluids for potassium replacement should she tolerate this and we will consult Palliative Care and Hospice. Job ID: [id number]
[2019-04-01] MEDS ORDERED: FLU VACC QS2019-20(6MOS UP)/PF 60 MCG/0.5 ML SYRINGE IM ONE (09:00)
[2019-04-01] MEDS: Morphine 2 MG/ML SYRINGE SLOW IVP PRN ×3 (09:09→18:17)
--- NOTE | 2019-04-01 09:09 | CT ---
PRELIMINARY REPORT/[facility]/EMERGENCY AFTER HOURS PROCEDURE: Addendum created by Matti Bateman MD on 04/01/2019 3:54 AM Central Time ([place] & [place]) THIS REPORT C ONTAINS FINDINGS THAT MAY BE CRITICAL TO PATIENT CARE. The findings were verbally communicated via te lephone conference with Dr Knowles by Dr. Bateman on 04/01/2019 3:53 AM CDT. The results were ackn owledged and understood. Initial Report created on 04/01/2019 3:49 AM Central Time ([place] & [place]) PROCEDURE INFORMATION: Exam: CT Head Without Contrast Exam date and time: 04/01/2019 3:41 AM Clinical history: 63 years old, female; Weakness, facial and other: Unresponsive; Patient HX: *level 1 stroke* f61, unknown last seen normal, right sided facial droop, last seen Thursday for stroke. Tiffany ent is unresponsive. TECHNIQUE: Imaging protocol: Computed tomography of the head without contrast. Other technique: STROKE PROTOCOL was implemented. COMPARISON: CT Brain WO Con 03/30/2019 4:58 AM FINDINGS: Brain: There is no evidence for acute stroke or bleed. Stable lacunar infarcts right basal ganglion and left arriola radiata. There are scattered foci of decreased attenuation in the periventricular and subcort ical white matter, nonspecific, but most consistent with chronic small vessel ischemic changes in patient of this age. Ventricles / cisterns / extra-axial spaces: There is no hydrocephalus, midline shift, or acute extra-axial fluid collection. There is no sulcal e ffacement. Sinuses: No findings of acute sinusitis or suspicious sinus mass. Bone: No acute fracture or displacement. Impression: Chronic changes without evidence for acute, intracranial pathology. Stable vs exam of 10.23.19. ASSESSMENT: ASPECTS ([place] Stroke Program Early CT Score) is 10. Thank you for allowing us to participate in the care of your patient. Dictated and Authenticated by: Matti Bateman MD 04/01/2019 3:49 AM Central Time ([place] & [place]) FINAL REPORT EMERGENCY AFTER HOURS CT BRAIN WITHOUT CONTRAST: FINDINGS/IMPRESSION: I agree with the findings and impression given in the preliminary report per [facility] physician. Small ve ssel ischemic disease without acute intracranial abnormality. POS: [facility]
[2019-04-01] MEDS: NS 0.9% w/ 20 MEQ KCL 1,000 ML/1,000 ML BAG IV SCH (09:10)
[2019-04-01] MEDS: Lorazepam 2 MG/ML VIAL SLOW IVP PRN ×3 (10:25→19:34)
[2019-04-01] MEDS ORDERED: Scopolamine 1.5 mg/72 hour Patch TD SCH (23:30)
[2019-04-02] MEDS: Morphine 2 MG/ML SYRINGE SLOW IVP PRN ×4 (00:02→16:32)
[2019-04-02] MEDS: Lorazepam 2 MG/ML VIAL SLOW IVP PRN ×4 (01:34→19:43)
[2019-04-02] MEDS: NS 0.9% w/ 20 MEQ KCL 1,000 ML/1,000 ML BAG IV SCH ×2 (04:56→12:29)
--- NOTE | 2019-04-02 13:55 | PDOC.HOSPP ---
- Subjective Encounter Date: 04/02/19 Encounter Time: 13:45 Subjective: f/u for acute CVA, NSTEMI and end-stage CM with EF 20%. Remains obtunded, aphasic and unresponsive. Family wishing to pursue hospice and potentially inpt hospice. - Objective Vital Signs & Weight: Vital Signs (12 hours) Temp Pulse Resp BP Pulse Ox 04/02/19 08:00 92 L 04/02/19 07:55 102.0 F H 137 H 24 H 135/67 88 L 04/02/19 04:00 91 L Weight Weight 157 lb 4.8 oz I&O: 04/01/19 04/02/19 04/03/19 06:59 06:59 06:59 Intake Total 0 Output Total 0 Balance 0 Result Diagrams: 04/01/19 03:41 04/01/19 03:41 Additional Labs: Laboratory Tests 03/30/19 04/01/19 04/01/19 08:41 03:41 03:41 Total Bilirubin 1.7 H AST 132 H ALT 58 H Alkaline Phosphatase 163 H Troponin I 3.567 H* 68.744 H* Radiology Reviewed by me: Yes (MRI brain - multifocal embolic CVA) Hospitalist ROS - Medication Medications: Active Medications Generic Name Dose Route Start Last Admin Trade Name Freq PRN Reason Stop Dose Admin Potassium Chloride/Sodium Chloride 1,000 ml in 1,000 mls @ 75 mls/hr 04/01/19 07:45 04/02/19 12:29 Ns 0.9% W/ 20 Meq Kcl IV Not Given .[id number] KASIA Lorazepam 1 mg 04/01/19 07:43 04/02/19 10:32 Ativan SLOW IVP 1 mg Q4H PRN Administration Anxiety/Agitation Morphine Sulfate 2 mg 04/01/19 07:43 04/02/19 12:35 Morphine SLOW IVP 2 mg Q4H PRN Administration Moderate Pain (4-6) Scopolamine 3 mg 04/01/19 23:30 04/02/19 00:03 Transderm Scop TD 3 mg Q3D KASIA Administration - Exam General Appearance: ill appearing General - other findings: obtunded ENT: no oropharyngeal lesions Neck: supple, symmetric, no JVD, no thyromegaly Heart: no rubs, normal peripheral pulses Heart - other findings: tachycardic Respiratory: tachypneic Respiratory - other findings: coarse sounds bilat Gastrointestinal: soft, non-distended, normal bowel sounds, no palpable masses Extremities: no cyanosis, no edema Skin: no lesions, no rashes Neurological - other findings: aphasic, obtunded Psychiatric: somnolent, lethargic Hosp A/P (1) CVA (cerebral vascular accident) Code(s): I63.9 - CEREBRAL INFARCTION, UNSPECIFIED Status: Acute Qualifiers: CVA mechanism: embolism Laterality of affected vessel: bilateral Plan: Subacute CVA with multifocal process and s/p tPA, non-compliance, remains aphasic, unresponsive with transition to hospice (2) Cardiomyopathy Code(s): I42.9 - CARDIOMYOPATHY, UNSPECIFIED Status: Chronic Qualifiers: Cardiomyopathy type: unspecified Qualified Code(s): I42.9 - Cardiomyopathy , unspecified Plan: EF 20%, appears end-stage (3) NSTEMI (non-ST elevated myocardial infarction) Code(s): I21.4 - NON-ST ELEVATION (NSTEMI) MYOCARDIAL INFARCTION Status: Acute Plan: Untreated as pt non-compliant, progressive (4) COPD (chronic obstructive pulmonary disease) Status: Chronic (5) Noncompliance with medication regimen Code(s): Z91.14 - PATIENT'S OTHER NONCOMPLIANCE WITH MEDICATION REGIMEN Status : Chronic (6) Tobacco abuse Code(s): Z72.0 - TOBACCO USE Status: Chronic - Plan plan discussed w/ family, hospice social worker Continue comfort measures Ativan IV prn agitation Continue Morphine Sulfate IV Family coordinating for hospice care
--- NOTE | 2019-04-02 19:08 | DIS ---
DATE OF ADMISSION: 04/01/2019 DATE OF DISCHARGE: 04/02/2019 DISCHARGE DIAGNOSES: 1. Acute subacute bilateral cerebrovascular accident, embolic and ischemic. 2. Cardiomyopathy with ejection fraction of 20%. 3. Non-ST elevation myocardial infarction, untreated. 4. Chronic obstructive pulmonary disease. 5. Noncompliance. 6. Tobacco abuse. CONSULTATIONS: Palliative Care and Hospice. PERTINENT LAB AND X-RAY FINDINGS: Potassium 2.9, creatinine 0.99, total bilirubin 1.7, AST 132, ALT 58, alkaline phosphatase 163. Troponin I 68.74. CBC showed a white blood cell count of 13, hemoglobin 13, hematocrit 39, platelet count 261. CT of the brain without contrast dated 04/01/2019, showed lacunar infarcts of the right basal ganglia and left arriola radiata. Chronic ischemic changes bilaterally. HOSPITAL COURSE: The patient was admitted to the Medical Oncology Service after initially presenting with fall and altered mental status in the context of acute CVA with right-sided hemiparesis. The patient has suffered a fall after leaving against medical advice and returning home after a recent admission 03/29 through 03/31/2019, for acute CVA status post tPA treatment. The patient suffered a concomitant non-ST elevation myocardial infarction at the time of her CVA, receiving general supportive management. The patient left against medical advice on 03/31/2019, however, returned on 04/01/2019, status post fall with altered mental status. The patient essentially remained obtunded during her hospital course, unresponsive and not following commands. Due to the patient's multiple comorbid status including persistent myocardial infarction, end-stage cardiomyopathy with ejection fraction of 20% and extensive CVA, the patient was deemed an appropriate candidate for palliative care. Discussions were had with the family regarding palliative measures and comfort and transitioning to hospice. The family decided to pursue hospice care given the multitude of severe conditions as stated previously. I have examined the patient at time of discharge and discussed followup instructions. Family verbalized understanding and in agreement, ready for discharge to inpatient hospice on 04/02/2019. DISCHARGE MEDICATIONS: 1. Ativan 1 mg IV push q.4 hours p.r.n. 2. Scopolamine patch 3 mg transdermally q.72 hours. FOLLOWUP: The patient will follow up with inpatient hospice with [facility]. CONDITION ON DISCHARGE: Guarded. ACTIVITY: Bedrest. DIET: N.p.o. CODE STATUS: Do not attempt resuscitation. DISPOSITION: Transfer to inpatient hospice with [facility] on 04/02/2019. TIME SPENT: Total time preparing and coordinating discharge is 32 minutes. Job ID: [id number]
[2019-04-02 19:15] VITALS: BP 124/71; TEMP 99.7
== END 2019-04-02 20:19 | disposition hospice, inpatient (51) | DRG 64 ==
LOC: ERS 03:37 → ONC 05:25 → OBSVTOIN 05:25
PROVIDERS: ADMIT Internal Medicine; ATTEND Internal Medicine
DX: I63.12 Cerebral infarction due to embolism of basilar artery (principal); I21.A1 Myocardial infarction type 2; R40.2222 Coma scale, best verbal response, incomprehensible words, at arrival to emergency department; I50.23 Acute on chronic systolic (congestive) heart failure; I42.9 Cardiomyopathy, unspecified; G81.91 Hemiplegia, unspecified affecting right dominant side; Z66 Do not resuscitate; Z51.5 Encounter for palliative care; J43.9 Emphysema, unspecified; F32.9 Major depressive disorder, single episode, unspecified; F17.210 Nicotine dependence, cigarettes, uncomplicated; R29.706 NIHSS score 6; R40.2142 Coma scale, eyes open, spontaneous, at arrival to emergency department; R40.2352 Coma scale, best motor response, localizes pain, at arrival to emergency department; Z91.19 Patient's noncompliance with other medical treatment and regimen; Z90.49 Acquired absence of other specified parts of digestive tract; Z90.710 Acquired absence of both cervix and uterus; Z86.73 Personal history of transient ischemic attack (TIA), and cerebral infarction without residual deficits; Z88.0 Allergy status to penicillin
CPT/HCPCS: 36416; 70450; 80053; 82553; 84484; 85025; 93005; 96374; J2060; J2270